=== PATIENT | male | born 1945 | race Caucasian/White ===

== ENCOUNTER → 2019-06-19 | Outpatient (CLI) | payer MEDICARE ==
--- NOTE | 2019-06-19 13:25 | Diagnostic Imaging Report ---
Indication: Cough and congestion x2 weeks. PA and lateral chest. Heart size and pulmonary vascularity are normal. Lungs are clear. There are no effusions or pneumothoraces. Impression: Negative chest. Dictated by: Dictated on workstation # [id number]
== END ==
LOC: RAD FS 12:45
PROVIDERS: ATTEND Nurse Practitioner Family
DX: J40 Bronchitis, not specified as acute or chronic (principal)
CPT/HCPCS: 71046

== ENCOUNTER → 2019-10-12 | Outpatient (CLI) | payer MEDICARE, OTHER | LOC: CARD 11:29 | PROVIDERS: ATTEND Family Medicine | DX: N18.2 Chronic kidney disease, stage 2 (mild) (principal); I08.1 Rheumatic disorders of both mitral and tricuspid valves | CPT/HCPCS: 93306 ==

== ENCOUNTER 2022-03-09 10:25 | Emergency (ER) | payer MEDICARE ==
[~2022-03-09] VITALS: Ht 172 cm; Wt 117.0 kg
[2022-03-09 11:26] VITALS: BP 150/83
--- NOTE | 2022-03-09 12:07 | ED Cough/URI ---
General Chief Complaint: Cough/Cold/Flu Symptoms Stated Complaint: CHEST CONGESTION History of Present Illness Date Seen by Provider: Mar 09, 2022 Time Seen by Provider: 11:40 Initial Comments 76-year-old male is here with complaints of chronic cough. Patient has been having a viral URI over the past 7 to 10 days or so, and was given amoxicillin by his PCP office. Patient is on his second to last day of medication. Patient's main issue is the cough which is worse at night. Denies fever, diarrhea, abdominal pain, chest pain, shortness of breath, headache, neck pain or stiffness. Patient's COVID test and flu test was negative last week. Allergies and Home Medications Allergies Uncoded Allergies: UNKNOWN ANTIDEPRESSANT (Allergy, Unknown, 03/09/22) Patient Home Medication List Home Medication List Reviewed: Yes Review of Systems Review of Systems Constitutional: no symptoms reported EENTM: no symptoms reported Respiratory: cough Cardiovascular: no symptoms reported Gastrointestinal: no symptoms reported Genitourinary: no symptoms reported Musculoskeletal: no symptoms reported Skin: no symptoms reported Psychiatric/Neurological: No Symptoms Reported Hematologic/Lymphatic: No Symptoms Reported Immunological/Allergic: no symptoms reported Physical Exam Vital Signs - First Documented 03/09/22 11:26 Temp 36.5 Pulse 79 Resp 18 B/P (MAP) 150/83 (105) O2 Delivery Room Air Capillary Refill : Height: '" Weight: lbs. oz. kg; BMI Method: General Appearance: WD/WN, no apparent distress HEENT: PERRL/EOMI, normal ENT inspection, TMs normal, pharynx normal Neck: non-tender, full range of motion, supple, normal inspection Respiratory: chest non-tender, lungs clear, normal breath sounds Cardiovascular: normal peripheral pulses, regular rate, rhythm Gastrointestinal: non tender, soft Neurologic/Psychiatric: no motor/sensory deficits, alert, normal mood/affect, oriented x 3 Skin: normal color Progress/Results/Core Measures Suspected Sepsis SIRS Temperature: Pulse: Respiratory Rate: Laboratory Tests 03/09/22 13:00: White Blood Count 13.9H Blood Pressure / Mean: Laboratory Tests 03/09/22 13:00: Creatinine 0.99, Platelet Count 292, Total Bilirubin 0.5 Results/Orders Lab Results Laboratory Tests Test 03/09/22 12:38 03/09/22 13:00 Range/Units Influenza Type A Antigen NEGATIVE NEGATIVE Influenza Type B Antigen NEGATIVE NEGATIVE White Blood Count 13.9 H 4.3-11.0 10^3/uL Red Blood Count 6.07 H 4.30-5.52 10^6/uL Hemoglobin 15.5 13.3-17.7 g/dL Hematocrit 48 40-54 % Mean Corpuscular Volume 79 L 80-99 fL Mean Corpuscular Hemoglobin 26 25-34 pg Mean Corpuscular Hemoglobin Concent 32 32-36 g/dL Red Cell Distribution Width 16.6 H 10.0-14.5 % Platelet Count 292 130-400 10^3/uL Mean Platelet Volume 9.5 9.0-12.2 fL Immature Granulocyte % (Auto) 1 % Neutrophils (%) (Auto) 56 42-75 % Lymphocytes (%) (Auto) 30 12-44 % Monocytes (%) (Auto) 10 0-12 % Eosinophils (%) (Auto) 2 0-10 % Basophils (%) (Auto) 1 0-10 % Neutrophils # (Auto) 7.8 1.8-7.8 10^3/uL Lymphocytes # (Auto) 4.2 H 1.0-4.0 10^3/uL Monocytes # (Auto) 1.4 H 0.0-1.0 10^3/uL Eosinophils # (Auto) 0.3 0.0-0.3 10^3/uL Basophils # (Auto) 0.1 0.0-0.1 10^3/uL Immature Granulocyte # (Auto) 0.2 H 0.0-0.1 10^3/uL Sodium Level 136 135-145 MMOL/L Potassium Level 3.7 3.6-5.0 MMOL/L Chloride Level 97 L 98-107 MMOL/L Carbon Dioxide Level 28 21-32 MMOL/L Anion Gap 11 5-14 MMOL/L Blood Urea Nitrogen 11 7-18 MG/DL Creatinine 0.99 0.60-1.30 MG/DL Estimat Glomerular Filtration Rate 80 BUN/Creatinine Ratio 11 Glucose Level 156 H 70-105 MG/DL Calcium Level 9.0 8.5-10.1 MG/DL Corrected Calcium 9.1 8.5-10.1 MG/DL Total Bilirubin 0.5 0.1-1.0 MG/DL Aspartate Amino Transf (AST/SGOT) 19 5-34 U/L Alanine Aminotransferase (ALT/SGPT) 17 0-55 U/L Alkaline Phosphatase 118 40-136 U/L Total Protein 6.9 6.4-8.2 GM/DL Albumin 3.9 3.2-4.5 GM/DL My Orders Orders - HEYDI LOVELL MD Covid 19 Inhouse Test (03/09/22 12:05) Isolation Central Supply Req (03/09/22 12:05) Chest 1 View Ap/Pa Only (03/09/22 12:22) Cbc With Automated Diff (03/09/22 12:22) Comprehensive Metabolic Panel (03/09/22 12:22) Procalcitonin (Pct) (03/09/22 12:22) Albuterol/Ipra Inhalation Soln (Duoneb I (03/09/22 12:23) Svn Small Volume Nebulizer (03/09/22 12:23) Benzonatate Capsule (Tessalon Perles) (03/09/22 12:23) Influenza A & B Antigens (03/09/22 12:43) Manual Differential (03/09/22 13:00) Vital Signs/I&O 03/09/22 03/09/22 11:26 11:26 Temp 36.5 Pulse 79 Resp 18 B/P (MAP) 150/83 (105) O2 Delivery Room Air Room Air Capillary Refill : Progress Note : Progress Note 1. POST-VIRAL COUGH SYNDROME: - Labs and CXR normal - COVID test sent - Advised to complete Amoxicillin therapy as instructed by PCP - Use nebulizer / inhalers as needed at home - Prescription for Tessalon Perles: 200mg three times a day as needed - Follow up with PCP within 3 to 7 days -the patient was seen in the ED, and treated appropriately to presentation at a specific point in time. Patient is informed that there is a possibility that disease and illness can evolve and change in acuity rapidly or slowly after patient is discharged from the ER. Precautionary advice given to the patient for immediate return to ER if symptoms worsen or do not resolve, and to seek emergency care sooner rather than later. Pt also advised on the importance of PCP follow up and compliance with management and follow up plan with PCP and/or specialist, as this is part of the management plan. Pt verbally expressed understanding. Diagnostic Imaging Diagonstic Imaging: Xray Plain Films/CT/US/NM/MRI: chest Comments [facility]. [place], [place] NAME: SANCHEZ MÉNDEZ [facility] REC#: [id number] PT STATUS: REG ER : 1945 PHYSICIAN: HEYDI LOVELL MD ADMIT DATE: 03/09/22/ER FS Draft Date of Exam:03/09/22 CHEST 1 VIEW AP/PA ONLY Indication: Cough, congestion. Compared: 06/16/2019 Findings: Lungs are clear. No failure\\, effusion or pneumothorax. Impression: No acute-appearing abnormality. Dictated on workstation # [id number] Dict: 03/09/22 1238 Trans: 03/09/22 1239 [facility] [id number] Interpreted by: NATALI CHAN Electronically signed by: Departure Impression Primary Impression: Viral syndrome Additional Impression: Post-viral cough syndrome Disposition: 01 HOME, SELF-CARE Condition: Stable Departure-Patient Inst. Referrals: TAL HALL MD (PCP) Primary Care Physician Patient Instructions: Cough, Adult (DC), Viral Syndrome (DC) Add. Discharge Instructions: - Advised to complete Amoxicillin therapy as instructed by PCP - Use nebulizer / inhalers as needed at home - Prescription for Tessalon Perles: 200mg three times a day as needed - Follow up with PCP within 3 to 7 days - Return to ER if symptoms worsening All discharge instructions reviewed with patient and/or family. Voiced underst anding. Scripts Benzonatate (TESSALON PERLES) 100 Mg Capsule 200 MG PO TID PRN for COUGH for 5 Days, #20 CAP Prov: HEYDI LOVELL MD 03/09/22 HEYDI LOVELL MD Mar 09, 2022 12:07
[2022-03-09] MEDS ORDERED: RT-ALBUTEROL/IPRATROPIUM 3 ML (DUONEB) VIAL INH STA (12:23)
[2022-03-09] MEDS ORDERED: BENZONATATE 100 MG (TESSALON) CAPSULE PO STA (12:23)
--- NOTE | 2022-03-09 12:39 | Diagnostic Imaging Report ---
Indication: Cough, congestion. Compared: 06/16/2019 Findings: Lungs are clear. No failure\, effusion or pneumothorax. Impression: No acute-appearing abnormality. Dictated by: Dictated on workstation # [id number]
[2022-03-09 13:05] LABS: BASOPHILS # (AUTO) 0.1 10^3/uL (0.0-0.1); BASOPHILS % (AUTO) 1 % (0-10); EOSINOPHILS # (AUTO) 0.3 10^3/uL (0.0-0.3); EOSINOPHILS % (AUTO) 2 % (0-10); HEMATOCRIT 48 % (40-54); HEMOGLOBIN 15.5 g/dL (13.3-17.7); LYMPHOCYTES # (AUTO) 4.2 10^3/uL (1.0-4.0); LYMPHOCYTES % (AUTO) 30 % (12-44); MEAN CORPUSCULAR HEMOGLOBIN 26 pg (25-34); MEAN CORPUSCULAR HGB CONC 32 g/dL (32-36); MEAN CORPUSCULAR VOLUME 79 fL (80-99); MEAN PLATELET VOLUME 9.5 fL (9.0-12.2); MONOCYTES # (AUTO) 1.4 10^3/uL (0.0-1.0); MONOCYTES % (AUTO) 10 % (0-12); NEUTROPHILS # (AUTO) 7.8 10^3/uL (1.8-7.8); NEUTROPHILS % (AUTO) 56 % (42-75); PLATELET COUNT 292 10^3/uL (130-400); WHITE BLOOD COUNT 13.9 10^3/uL (4.3-11.0)
[2022-03-09 13:53] LABS: ALBUMIN 3.9 GM/DL (3.2-4.5); BILIRUBIN,TOTAL 0.5 MG/DL (0.1-1.0); CREATININE SERUM 0.99 MG/DL (0.60-1.30); POTASSIUM 3.7 MMOL/L (3.6-5.0); TOTAL PROTEIN 6.9 GM/DL (6.4-8.2)
[2022-03-09] MEDS ORDERED: BENZ100C18 PO (14:20)
[2022-03-09 14:41] LABS: BAND NEUTROPHILS 7 %; BASOPHILS % (MANUAL) 0 %; EOSINOPHILS % (MANUAL) 1 %; LYMPHOCYTES % (MANUAL) 12 %; MONOCYTES % (MANUAL) 15 %; NEUTROPHILS % (MANUAL) 49 %
[2022-03-09 14:42] LABS: ATYPICAL LYMPHOCYTES 16 %; MICROCYTOSIS 1+; PLATELET ESTIMATE NORMAL
== END 2022-03-09 14:37 | disposition home or self-care (01) ==
LOC: EDUNIT# 10:25 → ER FS 10:27
DX: B34.9 Viral infection, unspecified (principal); R05.3 Chronic cough; Z20.822 Contact with and (suspected) exposure to COVID-19
CPT/HCPCS: 36415; 71045; 80053; 84145; 85007; 85027; 87636; 87804